=== PATIENT | female | born 1990 | race American Indian/Alaskan Native ===

== ENCOUNTER 2017-06-24 11:15 | Emergency (ER) | payer MEDICAID ==
[2017-06-24] MEDS ORDERED: D5NS 0.2% 1,000 ML IV SCH (12:00)
[2017-06-24 12:08] LABS: Hematocrit 21.8 % (30.3-42.9); Hemoglobin 7.4 gm/dl (10.1-14.3); Mean Corpuscular HGB Conc 34 % (30-34); Mean Corpuscular Hemoglobin 31 pg (28-32); Mean Corpuscular Volume 90 fl (79-97); Platelet Count 333 K/mm3 (140-440); Red Blood Count 2.41 M/mm3 (3.65-5.03); Reticulocyte % 15.23 % (0.78-2.58)
[2017-06-24 12:16] LABS: Red Cell Distribution Width 21.1 % (13.2-15.2); White Blood Count 24.1 K/mm3 (4.5-11.0)
[2017-06-24] MEDS ORDERED: MORPHINE IV ONE (12:40)
[2017-06-24] MEDS ORDERED: NACL 0.9% 1000 ML 1,000 ML IV ONE (12:40)
[2017-06-24] MEDS ORDERED: TORADOL IV ONE (12:40)
[2017-06-24] MEDS ORDERED: BENADRYL IV ONE ×2 (12:42→14:09)
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
[2017-06-24 12:50] LABS: Basophils % (Manual) 0 % (0.0-1.8); Blastocytes % (Manual) 0 %
[2017-06-24 12:51] LABS: Polychromasia 1+; Sickle Cells 1+
[2017-06-24 12:52] LABS: Anisocytosis 1+; Large Platelets Few; Target Cells 1+
[2017-06-24 12:53] LABS: Diff Status Complete
[2017-06-24] MEDS ORDERED: DILAUDID IV ONE ×2 (13:29→15:03)
[2017-06-24] MEDS ORDERED: FLUSH HEPARIN IV ONE ×2 (16:25→16:29)
[2017-06-24 16:32] VITALS: BP 99/52
== END 2017-06-24 16:34 | disposition home or self-care (01) ==
LOC: ED 11:15
DX: D57.00 Hb-SS disease with crisis, unspecified (principal)
CPT/HCPCS: 36415; 84703; 85007; 85025; 85045; 96361; 96374; 96375; 96376; 99283; J1170; J1200; J1642; J1885; J2270; J7030